=== PATIENT | male | born 1980 | race Caucasian/White ===

== ENCOUNTER 2022-02-03 01:52 | Emergency (ER) | payer SELFPAY ==
[2022-02-03 02:05] VITALS: BP 138/80; PULSE 110; RESP 18; TEMP 38.2; O2SAT 97; BMI 29.5
[2022-02-03 03:17] VITALS: BP 140/86; PULSE 97; RESP 18; O2SAT 97
--- NOTE | 2022-02-03 03:33 | CTR_ITS ---
PROCEDURE INFORMATION: Exam: CT Abdomen And Pelvis Without Contrast Exam date and time: 02/03/2022 4:10 AM Age: 41 years old Clinical indication: Abdominal pain; Flank; Right; Additional info: R sided flank/back pain TECHNIQUE: Imaging protocol: Computed tomography of the abdomen and pelvis without contrast. Radiation optimization: All CT scans at this facility use at least one of these dose optimization techniques: automated exposure control; mA and/or kV adjustment per patient size (includes targeted exams where dose is matched to clinical indication); or iterative reconstruction. COMPARISON: No relevant prior studies available. RADIATION DOSE METRICS: Total DLP (mGy-cm): 1626.2 FINDINGS: Lungs: The visualized lung sr show mild bibasilar atelectasis. Liver: The liver is normal in size and homogeneous density. Gallbladder and bile ducts: There are multiple cholesterol gallstones. No pericholecystic fluid. There is no evidence of bile duct dilatation. Pancreas: Normal size and homogeneous density. No ductal dilation. Spleen: The spleen is 13.4 cm in length, borderline enlarged. Adrenal glands: Normal. No mass. Kidneys and ureters: In the lower pole of the right kidney, there is a 13 x 11 mm heterogeneous hypodensity with peripheral calcification consistent with a non-simple cyst. Stomach and bowel: There is no evidence of small bowel or colonic obstruction. Appendix: The appendix is identified and appears normal. Intraperitoneal space: No free air. No significant fluid collection. Vasculature: No abdominal aortic aneurysm. Lymph nodes: There are multiple nonenlarged mesenteric and retroperitoneal lymph nodes, likely reactive. Urinary bladder: Mild thickening of the bladder wall that may be secondary to infection, underdistension or increased trabeculation. Reproductive: The prostate measures 4.4 cm in transverse dimension. Bones/joints: There are mild anterior and lateral osteophytes at multiple levels in the spine. There is limbus vertebra at L5, anatomic variant. There is mild grade 1 retrolisthesis of L5 on S1 and straightening of the normal lumbar lordosis, that may reflect muscle spasm of the be positional. A 7 mm sclerotic lesion in the body of S2 that in the absence of a known primary neoplasm, likely represents a bone island. Soft tissues: Unremarkable. CT/CT kidney stone [id number] IMPRESSION: 1. No evidence of hydronephrosis , renal or ureteral calculi. 2. A non simple cyst with a peripheral calcification in the right kidney. Consider correlation with MRI of the abdomen, renal mass protocol, to evaluate for possible neoplasm. 3. Mild thickening of the bladder wall that may be secondary to cystitis, underdistension or increased trabeculation. 4. Borderline splenomegaly. 5. Limbus vertebra at L5. Mild grade 1 retrolisthesis of L5 on S1. Loss of the normal lumbar lordosis.
[2022-02-03 03:51] LABS: Basophils % 0.2 %; Eosinophils # 0.1 10^3/uL (0.0-0.8); Eosinophils % 1.4 %; Hemoglobin 15.8 g/dL (11.7-16.6); Lymphocytes # 0.5 10^3/uL (0.8-4.8); Mean Corpuscular HGB Conc 34.3 g/dL (30.0-36.0); Mean Corpuscular Hemoglobin 30.5 pg (28.0-34.0); Mean Corpuscular Volume 88.8 fl (80-94); Mean Platelet Volume 9.6 fL (7.4-10.4); Monocytes # 0.6 10^3/uL (0.2-0.9); Monocytes % 9.3 %; Neutrophils # 5.34 10^3/uL (1.8-7.7); Neutrophils % 81.6 %; Nucleated Red Blood Cells % 0 %; Platelet Count 221 10^3/cmm (130-400); Red Blood Count 5.18 10^6/uL (4.1-5.3); Red Cell Distribution Width 12.7 % (12.1-15.1); White Blood Count 6.5 10^3/uL (4.0-10.0)
[2022-02-03] MEDS: sodium chloride 0.9% 1,000 ML 999 ML IV (03:52)
[2022-02-03 03:56] LABS: Add Urine Microscopic? NO; Charge for UA Resulting for Rev
[2022-02-03 03:58] LABS: Bilirubin Urine Neg (Negative); Blood Urine Neg (Negative); Glucose Urine UA Norm (Normal); Ketones Urine Negative (Negative); Leukocyte Esterase Urine Negative (Negative); Nitrate Urine Negative (Negative); Protein Urine Neg (Negative); Urine Appearance Clear (CLEAR); Urine Color Yellow (Yellow); Urobilinogen Urine Norm (Negative); pH Urine 5 (5-7)
[2022-02-03 04:07] LABS: Alanine Aminotransferase 25 U/L (0-41); Albumin Level 4.6 g/dL (3.5-5.2); Alkaline Phosphatase 88 IU/L (40-130); Anion Gap 15.7 (5-19); Aspartate Amino Transferase 19 U/L (0-40); Blood Urea Nitrogen 13 mg/dL (6-20); C Reactive Protein 8.1 mg/L (0.0-4.9); Calcium 9.2 mg/dL (8.5-10.5); Carbon Dioxide 21 mmol/L (22-29); Chloride 105 mmol/L (98-107); Creatinine Clr Calc Pharmacy 132.5451; Globulin 2.7 g/dL (1.3-4.6); Glomerular Filtration Rate 105.5 mL/min (90-130); Glucose 102 mg/dL (65-115); Lipase 19 U/L (13-60); Osmolality Calculated 286 mOsm/kg (285-295); Potassium 3.7 mmol/L (3.5-5.1); Sodium 138 mmol/L (136-145); Total Bilirubin 0.7 mg/dL (0.15-1.2); Total Protein 7.3 g/dL (6.6-8.7)
[2022-02-03 05:21] VITALS: BP 128/76; PULSE 91; RESP 16; O2SAT 97
--- NOTE | 2022-02-03 05:34 | ED_ITS ---
HPI - Nausea/Vomiting/Diarrhea General: Chief complaint: Nausea/Vomiting/Diarrhea Stated complaint: n/d Time Seen by Provider: 02/03/22 03:13 Source: patient History of Present Illness: 41-year-old male complains of 4 days of diarrhea. He has a temperature, which he acquired tonight. He has chills. He also has a right sided lower back pain that is hard to reproduce by palpation ongoing for well over a month. MD elicited complaint: diarrhea and flank pain Pertinent past history: other Onset (ago): day(s) (4) Description of vomiting: watery and bilious Associated nausea: Yes Associated abdominal pain: No Location of pain: R flank Pain consistency: intermittent Severity: moderate Quality: aching Exacerbating factors: none Associated symtoms: Reports anxiety, diaphoresis, decreased urine output, fevers/chills and nausea; Denies chest pain, cough, fecal incontinence, numbness or short of breath Review of Systems Const: Reports: fever(s), chills and diaphoresis Card: Denies: chest pain Resp: Denies: dyspnea GI: Reports: nausea; Denies: fecal incontinence Musc: Reports: back pain Psych: Reports: anxiety Physical Exam Const: COMMON NORMALS: no acute distress GENERAL APPEARANCE: cooperative; not ill appearing HENMT: COMMON NORMALS: normocephalic, atraumatic and Normal external nose present HEAD & SCALP: normocephalic and atraumatic NOSE: Normal external nose present Eye: COMMON NORMALS: Equal, round and reactive pupils present PUPIL: Yes Equal, round and reactive pupils present Chest: COMMONS NORMALS: normal inspection of the chest Resp: COMMON NORMALS: normal respiratory effort, No use of accessory muscles and clear to auscultation bilaterally AUSCULTATION: clear to auscultation bilaterally Cardio: COMMON NORMALS: regular rate and regular rhythm RATE: regular rate RHYTHM: regular rhythm GI: COMMON NORMALS: Normal to inspection, nondistended, normoactive bowel sounds present, Soft to palpation and non-tender PALPATION: Yes Soft to palpation : BLADDER/KIDNEY EXAM: Yes CVA tenderness on the right (mild) Back/Pelvis: GENERAL BACK: Yes CVA tenderness Neuro: [place] COMA SCALE: document GCS findings [place] coma scale eye opening: Spontaneous [place] coma scale verbal response: Orientated [place] coma scale motor response: Obey commands [place] coma scale total score: 15 Course Vital Signs: Vital signs: Vital Signs Temperature 100.7 F H 02/03/22 02:05 Pulse Rate 82 02/03/22 06:03 Respiratory Rate 16 02/03/22 06:03 Blood Pressure 116/75 02/03/22 06:03 Pulse Oximetry 95 02/03/22 06:03 MDM - Nausea/Vomiting/Diarrhea Medical Decision Making 41-year-old male whose main complaint is diarrhea. He had a fever here. 100.7. He also had some right flank/low back pain that is hard to reproduce. CBC is normal. BMP is normal. Liver enzymes are normal. His CRP is only 8. CT shows no hydronephrosis. There is a known simple cyst with perinephric calcification in the right kidney. I question as to whether this is an incidental finding or may be a source of his more chronic right flank discomfort. Normal appendix. Nothing acute on the CT. He will be discharged, as he is feeling improved. We will ask case management to make him a PCP follow-up for follow-up on the nonsimple kidney cyst. He may need further imaging. Lab Data : 02/03/22 03:40 02/03/22 03:40 Radiology Impressions Abdomen/Pelvis CT 02/03/22 03:33 IMPRESSION: 1. No evidence of hydronephrosis , renal or ureteral calculi. 2. A non simple cyst with a peripheral calcification in the right kidney. Consider correlation with MRI of the abdomen, renal mass protocol, to evaluate for possible neoplasm. 3. Mild thickening of the bladder wall that may be secondary to cystitis, underdistension or increased trabeculation. 4. Borderline splenomegaly. 5. Limbus vertebra at L5. Mild grade 1 retrolisthesis of L5 on S1. Loss of the normal lumbar lordosis. Laboratory Results WBC 6.5 10^3/uL (4.0-10.0) 02/03/22 03:40 RBC 5.18 10^6/uL (4.1-5.3) 02/03/22 03:40 Hgb 15.8 g/dL (11.7-16.6) 02/03/22 03:40 Hct 46.0 % (42.0-52.0) 02/03/22 03:40 MCV 88.8 fl (80-94) 02/03/22 03:40 MCH 30.5 pg (28.0-34.0) 02/03/22 03:40 MCHC 34.3 g/dL (30.0-36.0) 02/03/22 03:40 RDW 12.7 % (12.1-15.1) 02/03/22 03:40 Plt Count 221 10^3/cmm (130-400) 02/03/22 03:40 MPV 9.6 fL (7.4-10.4) 02/03/22 03:40 Neut % (Auto) 81.6 % 02/03/22 03:40 Lymph % (Auto) 7.0 % 02/03/22 03:40 [place] % (Auto) 9.3 % 02/03/22 03:40 Eos % (Auto) 1.4 % 02/03/22 03:40 Baso % (Auto) 0.2 % 02/03/22 03:40 Neut # (Auto) 5.34 10^3/uL (1.8-7.7) 02/03/22 03:40 Lymph # (Auto) 0.5 10^3/uL (0.8-4.8) L 02/03/22 03:40 [place] # (Auto) 0.6 10^3/uL (0.2-0.9) 02/03/22 03:40 Eos # (Auto) 0.1 10^3/uL (0.0-0.8) 02/03/22 03:40 Baso # (Auto) 0.0 10^3/uL (0.0-0.1) 02/03/22 03:40 Nucleated RBC % (auto) 0 % 02/03/22 03:40 Nucleated RBCs # 0.0 /100WBC 02/03/22 03:40 Sodium 138 mmol/L (136-145) 02/03/22 03:40 Potassium 3.7 mmol/L (3.5-5.1) 02/03/22 03:40 Chloride 105 mmol/L (98-107) 02/03/22 03:40 Carbon Dioxide 21 mmol/L (22-29) L 02/03/22 03:40 Anion Gap 15.7 (5-19) 02/03/22 03:40 BUN 13 mg/dL (6-20) 02/03/22 03:40 Creatinine 0.8 mg/dL (0.7-1.2) 02/03/22 03:40 GFR Calculation 105.5 mL/min (90-130) 02/03/22 03:40 Glucose 102 mg/dL (65-115) 02/03/22 03:40 Calculated Osmolality 286 mOsm/kg (285-295) 02/03/22 03:40 Calcium 9.2 mg/dL (8.5-10.5) 02/03/22 03:40 Total Bilirubin 0.7 mg/dL (0.15-1.2) 02/03/22 03:40 AST 19 U/L (0-40) 02/03/22 03:40 ALT 25 U/L (0-41) 02/03/22 03:40 Alkaline Phosphatase 88 IU/L (40-130) 02/03/22 03:40 C-Reactive Protein 8.1 mg/L (0.0-4.9) H 02/03/22 03:40 Total Protein 7.3 g/dL (6.6-8.7) 02/03/22 03:40 Albumin 4.6 g/dL (3.5-5.2) 02/03/22 03:40 Globulin 2.7 g/dL (1.3-4.6) 02/03/22 03:40 Lipase 19 U/L (13-60) 02/03/22 03:40 Urine Color Yellow (Yellow) 02/03/22 03:52 Urine Appearance Clear (CLEAR) 02/03/22 03:52 Urine pH 5 (5-7) 02/03/22 03:52 Ur Specific [place] 1.020 (1.005-1.030) 02/03/22 03:52 Urine Protein Neg (Negative) 02/03/22 03:52 Urine Glucose (UA) Norm (Normal) 02/03/22 03:52 Urine Ketones Negative (Negative) 02/03/22 03:52 Urine Blood Neg (Negative) 02/03/22 03:52 Urine Nitrate Negative (Negative) 02/03/22 03:52 Urine Bilirubin Neg (Negative) 02/03/22 03:52 Urine Urobilinogen Norm mg/dL (Negative) 02/03/22 03:52 Ur Leukocyte Esterase Negative (Negative) 02/03/22 03:52 Discharge Plan Discharge Patient Disposition: Home Clinical Impression: Gastroenteritis Condition: Stable Prescriptions: New metronidazole 500 mg tablet 500 mg PO Q8H Qty: 21 0RF Lomotil 2.5-0.025 mg tablet 1 tab PO Q8H PRN (Reason: diarrhea) Qty: 20 0RF Discharge Orders: Discharge ED (Routine); Ordered 02/03/22 Ordered By: Tirso Mae Discharge Diet: Advance as tolerated Discharge Activity: Increase activity as tolerated Patient Instructions: Dehydration (ED), Gastroenteritis (ED) Activity Restrictions/Additional Instructions: Return for worsening symptoms despite treatment, vomiting liquids or medications, continued fever, worsening pain, any other concerning symptoms. A case management order has been placed for primary care follow-up for you. If you do not hear from them by Friday afternoon, dial [phone] and ask for the ER outpatient case manager. Coding Level of Care Code ED [employer] for [place] Fwd Exam Comprehensive
[2022-02-03] MEDS: ketorolac 30 mg/mL INJ 15 MG IVP (05:58)
[2022-02-03 06:03] VITALS: BP 116/75; PULSE 82; RESP 16; O2SAT 95
--- NOTE | 2022-02-27 15:52 | DCPLANNER ---
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 group manager was unable to speak with patient or leave a voicemail for patient.
== END 2022-02-03 06:20 | disposition home or self-care (01) ==
PROVIDERS: Emergency Provider Emergency Medicine
DX: K52.9 Noninfective gastroenteritis and colitis, unspecified (principal)
CPT/HCPCS: 74176; 80053; 81003; 83690; 85025; 86140; 96361; 96374; 99284; J1885; J7030

== ENCOUNTER → 2024-04-12 11:13 | Outpatient (BNVA) | payer OTHER, SELFPAY | PROVIDERS: Visit Provider Nurse Practitioner Family | DX: R05.9 Cough, unspecified (principal) | CPT/HCPCS: 71046; 85025 ==

== ENCOUNTER → 2025-07-07 12:13 | Outpatient (BNVA) | payer OTHER, SELFPAY | PROVIDERS: Visit Provider Clinical Nurse Specialist Adult Health | DX: I10 Essential (primary) hypertension (principal) | CPT/HCPCS: 80053; 80061; 82607; 84439; 84443; 84481; 84550; 85025 ==

== ENCOUNTER 2025-07-21 08:55 | Outpatient (CLI) | payer OTHER, SELFPAY ==
--- NOTE | 2025-07-21 09:45 | USCV_ITS ---
MarekVu [email or web address] Age: 44 Gender: M : 1980 Exam Date: 07/21/2025 09:29 Ordering Phys: Thomas Hernandez NP Technologist: Exam Location: [facility] – [place] Indication: HTN Aortic Velocity @ SMA (cm/s) 95 RIGHT KIDNEY LEFT KIDNEY Velocity (cm/s) Velocity (cm/s) Sys/Johnson Sys/Johnson Resistive Index Resistive Index 72.5 / 34.6 0.52 Proximal Renal Artery 67.9 / 24.7 0.64 122.0 / 45.9 0.63 Mid Renal Artery 91.9 / 40.9 0.56 84.7 / 36.0 0.58 Distal Renal Artery 102.6 / 36.6 0.64 74.2 / 34.0 0.54 Hilar 36.3 / 12.9 0.64 27.8 / 12.6 0.55 Upper Pole 55.6 / 25.4 0.54 22.0 / 9.0 0.59 Mid Pole 25.6 / 8.5 0.67 21.5 / 9.0 0.58 Lower Pole 24.6 / 9.9 0.60 1.28 Renal Aortic Ratio 1.08 Accleration Time (sec) 0.12 Hilar 0.16 0.16 Upper Pole 0.17 0.20 Mid Pole 0.17 0.24 Lower Pole 0.13 12.2 Kidney Length (cm) 11.9 FINDINGS No evidence of abdominal aortic aneurysm. There is no evidence of hemodynamically significant right renal artery stenosis. There is no evidence of hemodynamically significant left renal artery stenosis. Normal size kidneys. CONCLUSIONS There is no sonographic evidence of hemodynamically significant renal artery stenosis. Dr. Orquidea Lott DO (Electronically Signed) Final Date: 21 July 2025 12:39 S
== END 2025-07-21 08:56 | disposition home or self-care (01) ==
PROVIDERS: PCP Clinical Nurse Specialist Adult Health; Visit Provider Clinical Nurse Specialist Adult Health
DX: I10 Essential (primary) hypertension (principal); I70.1 Atherosclerosis of renal artery
CPT/HCPCS: 93975